=== PATIENT | male | born 1970 | race Caucasian/White ===

== ENCOUNTER 2017-01-24 01:50 | Observation (INO) | payer OTHER ==
[2017-01-24] MEDS ORDERED: ASPIRIN 81 MG TABLET, CHEWABLE PO ONE (01:58)
[2017-01-24 02:08] LABS: ABSOLUTE BASOPHILS # (AUTO) 0.1 10^3/uL (0.0-0.2); ABSOLUTE EOSINOPHILS # (AUTO) 0.2 10^3/uL (0.0-0.6); ABSOLUTE LYMPHOCYTES (AUTO) 3.4 10^3/uL (0.5-4.7); ABSOLUTE MONOCYTES (AUTO) 0.9 10^3/uL (0.1-1.4); ABSOLUTE NEUT (AUTO) 6.7 10^3/uL (1.7-8.2); BASOPHILS % (AUTO) 0.7 % (0-2); EOSINOPHILS % (AUTO) 1.4 % (0-6); HEMATOCRIT 38.7 % (37.9-51.0); HEMOGLOBIN 13.5 g/dL (13.5-17.0); HGB HCT DIFFERENCE 1.8; LYMPHOCYTES % (AUTO) 30.2 % (13-45); MEAN CORPUSCULAR HEMOGLOBIN 30.1 pg (27.0-33.4); MEAN CORPUSCULAR VOLUME 86 fl (80-97); MONOCYTES % (AUTO) 7.7 % (3-13); RED BLOOD COUNT 4.51 10^6/uL (4.35-5.55); RED CELL DISTRIBUTION WIDTH 13.4 % (11.5-14.0); WHITE BLOOD COUNT 11.1 10^3/uL (4.0-10.5)
[2017-01-24 02:19] LABS: ALANINE AMINOTRANSFERASE 34 U/L (21-72); ALBUMIN 3.8 g/dL (3.5-5.0); ALKALINE PHOSPHATASE 80 U/L (38-126); ANION GAP 17 (5-19); ASPARTATE AMINO TRANSFERASE 11 U/L (17-59); BILIRUBIN,DIRECT 0.3 mg/dL (0.0-0.4); BILIRUBIN,TOTAL 0.6 mg/dL (0.2-1.3); BLOOD UREA NITROGEN 9 mg/dL (7-20); CALCIUM 8.7 mg/dL (8.4-10.2); CARBON DIOXIDE 18 mmol/L (22-30); CHLORIDE 107 mmol/L (98-107); CREATINE KINASE 70 U/L (55-170); CREATININE RESULT 0.86 mg/dL (0.52-1.25); GLUCOSE 216 mg/dL (75-110); POTASSIUM 3.7 mmol/L (3.6-5.0); SODIUM 141.6 mmol/L (137-145); TOTAL PROTEIN 6.1 g/dL (6.3-8.2)
[2017-01-24 02:31] LABS: CREATINE KINASE MB 1.35 ng/mL (<4.55)
[2017-01-24 02:35] LABS: TROPONIN I 0.061 ng/mL
--- NOTE | 2017-01-24 03:24 | ER Document Report ---
ED Cardiac - General Chief Complaint: Chest Pain Stated Complaint: CHEST PAIN Time Seen by Provider: 01/24/17 01:58 Notes: Patient is a 46-year-old male who presents emergency department with a chief complaint of chest pain over the past 2 weeks it was an anxiety attack this morning. Past medical history significant for hypertension, hyperlipidemia, diabetes, coronary artery disease with previous UT in 2010 and recent stent placement in April 2016 on Effient. Patient states that over the past 2 weeks he has been having chest pain requiring him to take nitro with complete resolution in his pain. Describing it as a constant dull pressure in his chest when it does occur. He denies any productive cough, fever chills, nausea, vomiting, epigastric discomfort. Patient states that he has been reluctant to come to the ER given that since his UT in 2010 most of his symptoms have been anxiety related. He states that the reason he came in this morning was he was sleeping on the couch and he woke up started hyperventilating secondary to an anxiety attack and called EMS. At this time he states he is chest pain-free has not had any chest pain since Wednesday night, denies any shortness of breath, dyspnea, chest pain, nausea, vomiting, abdominal pain. Past medical history significant for depression, anxiety, hypertension, hyperlipidemia, diabetes, coronary artery disease with UT in 2010 with stent placement, recent stent placement after a positive stress test in April 2016 on Effient. He does not follow with a primary care doctor in the area. 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 Wallace for endocrinology TRAVEL OUTSIDE OF THE [place] IN LAST 30 DAYS: No - Related Data Allergies/Adverse Reactions: No Known Allergies Allergy (Verified 01/28/16 09:23) Past Medical History - Social History Smoking Status: Never Smoker Chew tobacco use (# tins/day): No Frequency of alcohol use: Occasional Drug Abuse: None Family History: Reviewed & Not Pertinent Patient has suicidal ideation: No Patient has homicidal ideation: No - Past Medical History Cardiac Medical History: Reports: Hx Heart Attack - 2011, Hx Hypertension Pulmonary Medical History: Denies: Hx Asthma, Hx Tuberculosis Neurological Medical History: Denies: Hx Cerebrovascular Accident, Hx Seizures Endocrine Medical History: Reports: Hx Diabetes Mellitus Type 2 Renal/ Medical History: Denies: Hx Peritoneal Dialysis GI Medical History: Reports: Hx Hiatal Hernia. Denies: Hx Hepatitis, Hx Ulcer Infectious Medical History: Denies: Hx Hepatitis Past Surgical History: Denies: Hx Open Heart Surgery - stents X2, Hx Pacemaker - Immunizations Hx Diphtheria, Pertussis, Tetanus Vaccination: Yes Hx Pneumococcal Vaccination: 01/15/11 Review of Systems - Review of Systems Constitutional: No symptoms reported Cardiovascular: See HPI Respiratory: See HPI Gastrointestinal: No symptoms reported Neurological/Psychological: See HPI -: Yes All other systems reviewed and negative Physical Exam - Vital signs Vitals: Resp BP Pulse Ox 15 147/93 H 96 01/24/17 02:04 01/24/17 02:04 01/24/17 02:04 - Notes Notes: PHYSICAL EXAM GENERAL: Alert, interacts well. NECK: Full range of motion. Supple. Trachea midline. LUNGS: Clear to auscultation bilaterally, no wheezes, rales, or rhonchi. No respiratory distress. HEART: Regular rate and rhythm. No murmurs, gallops, or rubs. ABDOMEN: Soft, nondistended, nontender. No guarding, rebound, or rigidity.. Bowel sounds present in all 4 quadrants. EXTREMITIES: Moves all 4 extremities spontaneously. No edema, radial and dorsalis pedis pulses 2/4 bilaterally. No cyanosis. NEUROLOGICAL: Alert and oriented x4. Normal speech. PSYCH: Normal affect, normal mood. SKIN: Warm, dry, normal turgor. No rashes or lesions noted. Course - Re-evaluation Re-evalutation: 01/24/17 03:24 Patient is a 46-year-old male who is hemodynamically stable, no acute distress and afebrile. CBC without evidence of leukocytosis or anemia. Troponin elevated but below AMI cut off at 0.061. Patient has remained chest pain-free in the department. At this time plan is to repeat troponin in 3 hours with eventual dispel for admission here or possible transfer to tertiary facility with Post Office Markup Clerk capabilities. EKG without any evidence of ST changes or T-wave abnormalities. Chest x-ray stable without evidence of pneumothorax or pneumonia. Low clinical suspicion for aortic dissection given history, normal blood pressure as well as equal pulses. Will score of 0. D-dimer is negative. Patient is not tachycardic nor tachypneic. Therefore low suspicion for PE. 01/24/17 05:00 Repeat troponin was stable at 0.062. Patient has remained chest pain-free. Patient with a heart score of approximately 5 given history, age, risk factors as well as troponin. Discussed with patient if he would like to be admitted to the hospital for a stress test today which he is accepting. Patient has been accepted to the hospitalist service by Dr. Briones to telemetry observation with a stress test to be done today. - Vital Signs Vital signs: Temp Pulse Resp BP Pulse Ox 20 145/108 H 95 01/24/17 05:30 01/24/17 05:30 01/24/17 05:30 - Laboratory Result Diagrams: 01/24/17 01:55 01/24/17 01:55 Laboratory results interpreted by me: 01/24/17 01/24/17 01/24/17 01:55 01:55 04:25 WBC 11.1 H Carbon Dioxide 18 L Glucose 216 H AST 11 L Total Protein 6.1 L Triglycerides 157 H VLDL Cholesterol 31.4 H HDL Cholesterol 28 L - Diagnostic Test Radiology reviewed: Image reviewed, Reports reviewed - EKG Interpretation by Ia EKG shows normal: Sinus rhythm Rate: Normal Rhythm: NSR When compared to previous EKG there are: No significant change Discharge - Discharge Clinical Impression: Chest pain Qualifiers: Chest pain type: chest pain due to myocardial ischemia Ischemic chest pain type : stable angina pectoris Qualified Code(s): I20.8 - Other forms of angina pectoris Condition: Stable Disposition: ADMITTED OBSERVATION Admitting Provider: Karen Briones Unit Admitted: Telemetry
--- NOTE | 2017-01-24 03:47 | EKG REPORT ---
SEVERITY:- BORDERLINE ECG - SINUS RHYTHM BORDERLINE T ABNORMALITIES, INFERIOR LEADS : Confirmed by: Jose Alejandro Smith 24-Jan-2017 03:46:29
[2017-01-24] MEDS ORDERED: NITROGLYCERIN 0.4 MG/TAB 25 TAB/BOTTLE SL PRN (05:48)
--- NOTE | 2017-01-24 06:05 | RADIOLOGY REPORT (SQ) ---
EXAM DESCRIPTION: CHEST SINGLE VIEW CLINICAL HISTORY: 46 years, Male, chest pain COMPARISON: None. Technique: AP portable upright. LIMITATIONS: None. FINDINGS: Adequate lung volumes, clear parenchyma, moderate opacity overlies lower cardiac silhouette may indicate a moderate hiatal hernia, and intact bony thorax. IMPRESSION: Possible moderate hiatal hernia; cannot exclude other mediastinal process. Consider further evaluation with PA and lateral chest radiographs and/or contrast CT of the chest. 2011 [employer]- All Rights Reserved
[2017-01-24 06:30] LABS: CHOLESTEROL 124.71 mg/dL (0-200); Direct HDL 28 mg/dL (>40); TRIGLYCERIDES 157 mg/dL (<150)
[2017-01-24 06:35] LABS: VLDL CHOLESTEROL 31.4 mg/dL (10-31)
[2017-01-24] MEDS ORDERED: TRAZODONE HCL 50 MG TABLET PO ONE (06:35)
[2017-01-24 06:41] LABS: DIRECT LDL 73 mg/dL (<100)
[2017-01-24] MEDS ORDERED: TRAZODONE HCL 50 MG TABLET PO PRN (06:52)
[2017-01-24] MEDS ORDERED: DEXTROSE 40% GEL 15 GM TUBE PO PRN ×2 (07:21)
[2017-01-24] MEDS ORDERED: DEXTROSE 50%-WATER 25 GM/50 ML DISP.SYRIN IV PRN ×2 (07:21)
[2017-01-24] MEDS ORDERED: GLUCAGON,HUMAN RECOMB 1 MG INJ IM PRN (07:21)
[2017-01-24] MEDS ORDERED: INSULIN LISPRO 100 UNIT/ML 3 ML VIAL SUBCUT PRN (07:21)
--- NOTE | 2017-01-24 07:28 | PDOC H&P ---
History of Present Illness Admission Date/PCP: 01/24/17 05:53 JOANNE BELTRAN MD Patient complains of: Chest pain History of Present Illness: SALAS WAY is a 46 year old male with past medical history of diabetes, hypertension, dyslipidemia, PTSD and coronary artery disease with acute UT 2010 with 2 stents last placed in June 2016 on Effient. Patient presents with increased intensity and frequency of dull 3 out of 5, left-sided chest pain with radiation to the left arm occurring at rest but alleviated by nitroglycerin. Pain is exacerbated by exertion alleviated by nitroglycerin. He denies post stent stress test or cardiac catheterization. In the emergency room he is pain-free with an unremarkable workup and referred to the hospitalist for observation. Past Medical History Cardiac Medical History: Reports: Myocardial Infarction - 2011, Hypertension Pulmonary Medical History: Denies: Asthma, Tuberculosis Neurological Medical History: Denies: Seizures Endocrine Medical History: Reports: Diabetes Mellitus Type 2 GI Medical History: Reports: Hiatal Hernia Denies: Hepatitis Psychiatric Medical History: Reports: Post Traumatic Stress Disorder Hematology: Denies: Anemia, Sickle Cell Disease Past Surgical History Past Surgical History: Denies: Pacemaker Social History Information Source: Patient Smoking Status: Never Smoker Frequency of Alcohol Use: Rare Hx Recreational Drug Use: No Hx Prescription Drug Abuse: No - Advance Directive Resuscitation Status: Full Code Family History Family History: Hypertension Parental Family History Reviewed: Yes Children Family History Reviewed: Yes Sibling(s) Family History Reviewed.: Yes Medication/Allergy Home Medications: Omeprazole [Prilosec] 20 mg PO DAILY 01/21/11 Aspirin [Aspirin 81 mg Chewable Tablet] 81 mg PO DAILY 03/02/11 Atorvastatin Calcium [Lipitor 40 Mg Tablet] 80 mg PO DAILY 03/02/11 Lisinopril [Prinivil 2.5 mg Tablet] 2.5 mg PO DAILY 03/02/11 Metoprolol Succinate [Toprol-Xl 25 Mg Tab.Sr] 25 mg PO DAILY 03/02/11 Nitroglycerin [Nitrostat 0.4 mg (1/150 Gr) Tabs 25/Bottle] 0.4 mg SL PRN PRN 30/01 Besifloxacin HCl [Besivance 0.6% Oph Susp 5 ml] 1 drop OP DAILY 12/18/15 Difluprednate [Durezol] 1 drop OP ASDIR 12/18/15 Liraglutide [Victoza 2-Martir] 0.6 mg SQ DAILY 12/18/15 Nepafenac [Ilevro] 1 drop OP ASDIR 12/18/15 Sertraline HCl [Zoloft] 25 mg PO DAILY 12/18/15 Allergies/Adverse Reactions: No Known Allergies Allergy (Verified 01/28/16 09:23) Review of Systems Constitutional: ABSENT: chills, fever(s), headache(s), weight gain, weight loss Eyes: ABSENT: visual disturbances Ears: ABSENT: hearing changes Cardiovascular: ABSENT: chest pain, dyspnea on exertion, edema, orthropnea, palpitations Respiratory: ABSENT: cough, hemoptysis Gastrointestinal: ABSENT: abdominal pain, constipation, diarrhea, hematemesis, hematochezia, nausea, vomiting Genitourinary: ABSENT: dysuria, hematuria Musculoskeletal: ABSENT: joint swelling Integumentary: ABSENT: rash, wounds Neurological: ABSENT: abnormal gait, abnormal speech, confusion, dizziness, focal weakness, syncope Psychiatric: ABSENT: anxiety, depression, homidical ideation, suicidal ideation Endocrine: ABSENT: cold intolerance, heat intolerance, polydipsia, polyuria Hematologic/Lymphatic: ABSENT: easy bleeding, easy bruising Physical Exam Vital Signs: Temp Pulse Resp BP Pulse Ox 20 145/108 H 95 01/24/17 05:30 01/24/17 05:30 01/24/17 05:30 General appearance: PRESENT: no acute distress, well-developed, well-nourished Head exam: PRESENT: atraumatic, normocephalic Eye exam: PRESENT: conjunctiva pink, EOMI, PERRLA. ABSENT: scleral icterus Ear exam: PRESENT: normal external ear exam Mouth exam: PRESENT: moist, tongue midline Neck exam: ABSENT: carotid bruit, JVD, lymphadenopathy, thyromegaly Respiratory exam: PRESENT: clear to auscultation christina. ABSENT: rales, rhonchi, wheezes Cardiovascular exam: PRESENT: RRR. ABSENT: diastolic murmur, rubs, systolic murmur Pulses: PRESENT: normal dorsalis pedis pul Vascular exam: PRESENT: normal capillary refill GI/Abdominal exam: PRESENT: normal bowel sounds, soft. ABSENT: distended, guarding, mass, organolmegaly, rebound, tenderness Rectal exam: PRESENT: deferred Extremities exam: PRESENT: full ROM. ABSENT: calf tenderness, clubbing, pedal edema Neurological exam: PRESENT: alert, awake, oriented to person, oriented to place , oriented to time, oriented to situation, CN II-XII grossly intact. ABSENT: motor sensory deficit Psychiatric exam: PRESENT: appropriate affect, normal mood. ABSENT: homicidal ideation, suicidal ideation Skin exam: PRESENT: dry, intact, warm. ABSENT: cyanosis, rash Results Impressions: Chest X-Ray 01/24/17 01:58 IMPRESSION: Possible moderate hiatal hernia; cannot exclude other mediastinal process. Consider further evaluation with PA and lateral chest radiographs and/or contrast CT of the chest. 2010 [employer]- All Rights Reserved Assessment & Plan - Diagnosis (1) Chest pain Qualifiers: Chest pain type: chest pain due to myocardial ischemia Ischemic chest pain type: stable angina pectoris Qualified Code(s): I20.8 - Other forms of angina pectoris Plan: With coronary artery disease on Effient, worse with exertion relieved by nitro, symptomatic management, serial cardiac enzymes, evaluation of risk factor and Cardiolite stress test. Consider transfer to [facility] in [place] to wool grower Dr. Grullon (2) Hypertension Is this a current diagnosis for this admission?: Yes Plan: Home regiment with as needed hydralazine (3) Dyslipidemia Is this a current diagnosis for this admission?: Yes Plan: Statin and evaluation of lipid profile (4) PTSD (post-traumatic stress disorder) Is this a current diagnosis for this admission?: Yes Plan: Zoloft and trial of trazodone (5) Diabetes Is this a current diagnosis for this admission?: Yes Plan: Home regiment with sliding scale follow-up A1c. - Time Time Spent: 30 to 50 Minutes
[2017-01-24 08:38] LABS: CREATINE KINASE MB 0.99 ng/mL (<4.55); TROPONIN I 0.054 ng/mL
[2017-01-24] MEDS: SERTRALINE HCL 50 MG TABLET PO SCH (09:35)
[2017-01-24] MEDS: LISINOPRIL 5 MG TABLET PO SCH (09:35)
[2017-01-24] MEDS: ATORVASTATIN CALCIUM 40 MG TABLET PO SCH (09:35)
[2017-01-24] MEDS: ASPIRIN 81 MG TABLET, CHEWABLE PO SCH (09:35)
[2017-01-24] MEDS: DOCUSATE SODIUM 100 MG CAPSULE PO SCH (09:40)
[2017-01-24] MEDS ORDERED: METOPROLOL SUCCINATE 25 MG TAB.SR.24H PO SCH (10:00)
--- NOTE | 2017-01-24 14:49 | PDOC PROGRESS REPORT ---
Subjective Progress Note for:: 01/24/17 Subjective:: Denies any chest pain at this time Reason For Visit: CAD, CHEST PAIN Physical Exam Vital Signs: Temp Pulse Resp BP Pulse Ox 97.9 F 87 16 119/76 94 01/24/17 13:08 01/24/17 13:08 01/24/17 13:08 01/24/17 13:08 01/24/17 13:08 Intake & Output 01/23/17 01/24/17 01/25/17 06:59 06:59 06:59 Weight 108 kg General appearance: PRESENT: no acute distress Eye exam: PRESENT: conjunctiva pink. ABSENT: scleral icterus Mouth exam: PRESENT: moist, tongue midline Neck exam: ABSENT: carotid bruit, JVD, lymphadenopathy, thyromegaly Respiratory exam: PRESENT: clear to auscultation christina. ABSENT: rales, rhonchi, wheezes Cardiovascular exam: PRESENT: RRR. ABSENT: diastolic murmur, rubs, systolic murmur GI/Abdominal exam: PRESENT: normal bowel sounds, soft. ABSENT: distended, guarding, mass, organolmegaly, rebound, tenderness Extremities exam: ABSENT: calf tenderness, clubbing, pedal edema Neurological exam: PRESENT: alert, awake, oriented to person, oriented to place , oriented to time, oriented to situation, CN II-XII grossly intact. ABSENT: motor sensory deficit Psychiatric exam: PRESENT: appropriate affect Skin exam: PRESENT: dry, intact, warm. ABSENT: cyanosis, rash Results Laboratory Results: 01/24/17 08:00 CK-MB (CK-2) 0.99 Troponin I 0.054 Impressions: Chest X-Ray 01/24/17 01:58 IMPRESSION: Possible moderate hiatal hernia; cannot exclude other mediastinal process. Consider further evaluation with PA and lateral chest radiographs and/or contrast CT of the chest. 2010 [employer]- All Rights Reserved Assessment & Plan - Diagnosis (1) Chest pain Qualifiers: Chest pain type: chest pain due to myocardial ischemia Ischemic chest pain type: stable angina pectoris Qualified Code(s): I20.8 - Other forms of angina pectoris Is this a current diagnosis for this admission?: Yes Plan: The patient will be admitted and monitored on telemetry. Will check serial cardiac enzymes and if they are negative we will obtain a stress test. (2) Coronary artery disease Is this a current diagnosis for this admission?: Yes Plan: Continue with aspirin and Lipitor. (3) Diabetes Is this a current diagnosis for this admission?: Yes Plan: Continue with sliding scale insulin. (4) Dyslipidemia Is this a current diagnosis for this admission?: Yes Plan: Continue Lipitor (5) Hypertension Is this a current diagnosis for this admission?: Yes Plan: Patient is currently on lisinopril. (6) PTSD (post-traumatic stress disorder) Is this a current diagnosis for this admission?: Yes Plan: Continue trazodone and Zoloft. - Time Time Spent with patient: 25-34 minutes
[2017-01-24 15:44] LABS: CREATINE KINASE MB 0.84 ng/mL (<4.55); TROPONIN I 0.051 ng/mL
[2017-01-24] MEDS: LANSOPRAZOLE 30 MG TAB.RAP.DR PO SCH (16:41)
[2017-01-24] MEDS ORDERED: REGADENOSON INJ 0.4 MG/5 ML DISP.SYRIN IV ONE (20:08)
[2017-01-24 20:42] LABS: CREATINE KINASE MB 0.78 ng/mL (<4.55); TROPONIN I 0.056 ng/mL
[2017-01-25] MEDS: LANSOPRAZOLE 30 MG TAB.RAP.DR PO SCH (05:37)
[2017-01-25 05:45] LABS: CHOLESTEROL 131.72 mg/dL (0-200); CREATINE KINASE 46 U/L (55-170); Direct HDL 28 mg/dL (>40); TRIGLYCERIDES 185 mg/dL (<150)
[2017-01-25 05:57] LABS: DIRECT LDL 81 mg/dL (<100)
[2017-01-25] MEDS: ATORVASTATIN CALCIUM 40 MG TABLET PO SCH (10:03)
[2017-01-25] MEDS: ASPIRIN 81 MG TABLET, CHEWABLE PO SCH (10:04)
[2017-01-25] MEDS: LISINOPRIL 5 MG TABLET PO SCH (10:04)
[2017-01-25] MEDS: SERTRALINE HCL 50 MG TABLET PO SCH (10:04)
[2017-01-25] MEDS: DOCUSATE SODIUM 100 MG CAPSULE PO SCH (10:05)
--- NOTE | 2017-01-25 15:19 | PDOC DISCHARGE SUMMARY ---
General - Admit/Disc Date/PCP Admission Date/Primary Care Provider: 01/24/17 05:53 JOANNE BELTRAN MD Discharge Date: 01/25/17 - Discharge Diagnosis (1) Chest pain Is this a current diagnosis for this admission?: Yes Summary: most likely from gerd (2) Coronary artery disease Is this a current diagnosis for this admission?: Yes (3) Diabetes Is this a current diagnosis for this admission?: Yes (4) Dyslipidemia Is this a current diagnosis for this admission?: Yes (5) Hypertension Is this a current diagnosis for this admission?: Yes (6) PTSD (post-traumatic stress disorder) Is this a current diagnosis for this admission?: Yes - Additional Information Resuscitation Status: Full Code Discharge Diet: Cardiac, Diabetic Discharge Activity: Activity As Tolerated Home Medications: Aspirin [Aspirin EC] 81 mg PO DAILY 01/24/17 Atorvastatin Calcium [Lipitor 80 mg Tablet] 80 mg PO QHS 01/24/17 Liraglutide [Victoza 2-Martir] 0.6 ml SQ DAILY 01/24/17 Lisinopril [Prinivil] 20 mg PO DAILY 01/24/17 Metformin HCl [Metformin HCl ER] 1,000 mg PO DAILY 01/24/17 Metformin HCl [Metformin HCl ER] 1,000 mg PO QHS 01/24/17 Metoprolol Succinate [Toprol Xl] 25 mg PO DAILY 01/24/17 Omeprazole Magnesium [Prilosec Otc] 40 mg PO DAILY 01/24/17 Prasugrel HCl [Effient] 10 mg PO DAILY 01/24/17 Sertraline HCl [Zoloft 50 mg Tablet] 25 mg PO DAILY tablet 01/25/17 History of Present Illness History of Present Illness: SALAS WAY is a 46 year old male history diabetes, hypertension dyslipidemia, and coronary artery disease who has a history of 2 stents placed last June and has been on Effient. Patient presented with increased intensity of pain left-sided with radiation to left arm that occurred at rest but was alleviated by nitroglycerin. The patient is currently pain-free and is admitted for further workup. Patient did relate there was some nausea to food. Hospital Course Hospital Course: 46-year-old male who presented with chest pain. He does have a history of coronary artery disease. He was admitted and monitor oximetry. He had no cardiac arrhythmias. The patient had negative cardiac enzymes. Patient had a Cardiolite stress test which showed a fixed defect. It was felt he was stable for discharge. His thought this most likely was secondary to gastroesophageal reflux disease. The patient will follow up as outpatient with his bottle blowing machine tender Dr. Grullon. His other medical problems were stable during this hospitalization Physical Exam Vital Signs: Temp Pulse Resp BP Pulse Ox 98.1 F 84 16 120/76 96 01/25/17 08:00 01/25/17 08:00 01/25/17 08:00 01/25/17 08:00 01/25/17 08:00 Intake & Output 01/24/17 01/25/17 01/26/17 06:59 06:59 06:59 Intake Total 240 Output Total 625 Balance -385 Weight 108 kg General appearance: PRESENT: no acute distress Eye exam: PRESENT: conjunctiva pink. ABSENT: scleral icterus Ear exam: PRESENT: normal external ear exam Mouth exam: PRESENT: moist, tongue midline Neck exam: ABSENT: carotid bruit, JVD, lymphadenopathy, thyromegaly Respiratory exam: PRESENT: clear to auscultation christina. ABSENT: rales, rhonchi, wheezes Cardiovascular exam: PRESENT: RRR. ABSENT: diastolic murmur, rubs, systolic murmur GI/Abdominal exam: PRESENT: normal bowel sounds, soft. ABSENT: distended, guarding, mass, organolmegaly, rebound, tenderness Extremities exam: PRESENT: full ROM. ABSENT: calf tenderness, clubbing, pedal edema Neurological exam: PRESENT: alert, awake, oriented to person, oriented to place , oriented to time, oriented to situation, CN II-XII grossly intact. ABSENT: motor sensory deficit Psychiatric exam: PRESENT: appropriate affect Results Laboratory Results: 01/25/17 04:05 Triglycerides 185 H Cholesterol 131.72 LDL Cholesterol Direct 81 VLDL Cholesterol 37.0 H HDL Cholesterol 28 L 01/24/17 01/24/17 01/24/17 08:00 14:40 20:01 Creatine Kinase CK-MB (CK-2) 0.99 0.84 0.78 Troponin I 0.054 0.051 0.056 01/25/17 04:05 Creatine Kinase 46 L CK-MB (CK-2) Troponin I Impressions: Chest X-Ray 01/24/17 01:58 IMPRESSION: Possible moderate hiatal hernia; cannot exclude other mediastinal process. Consider further evaluation with PA and lateral chest radiographs and/or contrast CT of the chest. 2011 [employer]- All Rights Reserved Qualifiers PATEINT BEING DISCHARGED WITH ANY OF THE FOLLOWING DIAGNOSIS?: No Plan Discharge Plan: Patient is discharged home. Will follow up with bottle blowing machine tender in 1-2 weeks as an outpatient for an echocardiogram. Follow with primary care in the next 2 weeks. Time Spent: Less than 30 Minutes
[2017-01-25 16:42] VITALS: BP 133/85
[2017-01-26] MEDS ORDERED: ASPIRIN 81 MG TABLET, CHEWABLE PO SCH (10:00)
--- NOTE | 2017-01-26 13:15 | DRAGON STRESS TEST REPORT ---
Intravenous Lexiscan Cardiolite stress test using single photon emmision computerized tomography. Date of procedure: 01/25/2017. Ordering Provider: Dr. Moise Briones. Patient's status: In Patient. Indication: Chest pain, in a patient with coronary artery disease history of CA and history of right coronary artery stent in June 2016. Coronary risk factors: Age, diabetes mellitus, hypertension, dyslipidemia, and family history of coronary artery disease. Resting EKG: Sinus Rhythm. Within Normal Limits Stress EKG: No changes of ischemia. The patient had no chest pain or discomfort, and there was no arrhythmias seen Reason for termination: Protocol. Conclusions: Normal EKG and hemodynamic response to IV Lexiscan. Nuclear data: At rest the patient was given 15.69 millicuries of technetium 99m sestamibi injected intravenously. As per protocol rest non gated SPECT images were obtained. Subsequently the patient was given intravenous Lexiscan at a dose of 0.4 mg in 5 mL intravenously, followed by flush with normal saline. Subsequently the stress dose of 45.1 millicuries of technetium 99m sestamibi was injected intravenously. As per protocol stress gated images were obtained. Nuclear interpretation: Review of images showed that there is a perfusion defect in both the stress and rest images involving the basal inferior wall. This basal inferior wall had decreased motion contraction and thickening. Hence this is consistent with a CA /scar . The rest of the segments of the myocardium had normal perfusion at rest , and normal perfusion post stress with IV Lexiscan. The rest of the segments of the myocardium had normal motion, contraction, and thickening by gated study. T. I D. ratio was normal at 0.93. Computer read rest, and stress left ventricular ejection fraction were 40 %, and 6 %, respectively. Visually both the stress and rest ejection fractions were normal, and greater than 55%. Conclusion: 1. There is no scintigraphic evidence of Lexiscan induced myocardial ischemia. 2. There is scintigraphic evidence of myocardial infarction/scar evolving the basal inferior wall.. Recommendations: 1..Aggressive treatment of coronary artery disease, and aggressive risk factor modification, and treating the underlying co- morbidities. 2. Strongly recommend echocardiogram for LVEF correlation. [facility]
[2017-01-26] MEDS ORDERED: ATORVASTATIN CALCIUM 80 MG TABLET PO SCH (22:00)
== END 2017-01-25 17:10 | disposition home or self-care (01) ==
LOC: ER 01:50 → EH 05:53 → 5 11:04
PROVIDERS: ADMIT Internal Medicine; ATTEND Internal Medicine
DX: R07.9 Chest pain, unspecified (principal); I25.118 Atherosclerotic heart disease of native coronary artery with other forms of angina pectoris; E11.9 Type 2 diabetes mellitus without complications; E78.5 Hyperlipidemia, unspecified; I10 Essential (primary) hypertension; F43.10 Post-traumatic stress disorder, unspecified; K21.9 Gastro-esophageal reflux disease without esophagitis; I25.2 Old myocardial infarction; Z79.82 Long term (current) use of aspirin; Z79.899 Other long term (current) drug therapy; Z79.84 Long term (current) use of oral hypoglycemic drugs; Z95.5 Presence of coronary angioplasty implant and graft; Z79.02 Long term (current) use of antithrombotics/antiplatelets; Z82.49 Family history of ischemic heart disease and other diseases of the circulatory system
CPT/HCPCS: 93005; 99285; 36415 ×2; 82553; 82962 ×2; 82550 ×2; 85025; 85652; 80053; 84484; 83036; 85379; 80061 ×2; 93017; 71010; 78452; 93010; A9500; J2785; J1815; J3490; Q9969